=== PATIENT | female | born 1990 | race African-American/Black ===

== ENCOUNTER 2018-11-16 09:31 | Day surgery (SDC) | payer OTHER ==
[2018-11-16 10:05] VITALS: BMI 35.6
[2018-11-16 10:06] VITALS: BP 121/69; TEMP 98.2
[2018-11-16 10:47] LABS: Bilirubin Negative (Negative); Blood, Urine Negative (Negative); Glucose, Urine (Dipstick) Negative (Negative); Leukocyte Negative (Negative); Nitrite Negative (Negative); Protein, Urine (Dipstick) Negative (Neg-Trace); Urobilinogen 0.2 mg/dL (0.2-1.0)
[2018-11-16 10:50] LABS: Clarity Clear (Clear)
--- NOTE | 2018-11-16 23:55 | SS ---
DATE OF ADMISSION: 11/16/2018 DATE OF DISCHARGE: 11/16/2018 REGULAR PHYSICIAN: Angeles Noel MD. EVALUATING PHYSICIAN: Evsin Miller MD CHIEF COMPLAINT: Back pain. HISTORY OF PRESENT ILLNESS: Ms. Reyes is a 27-year-old black, G7, P5, with an estimated date of confinement of 12/25/2018, who presents complaining of low back pain since last evening and she thinks that she has lost her mucus plug. She denies ruptured membranes or vaginal bleeding. Her care has been with Dr. Noel. She is scheduled for repeat section on 12/17. PAST OBSTETRICAL HISTORY: All vaginal deliveries with the exception of a in 2017 at 41-1/2 weeks for what sounds like a placental abruption. She has also experienced DIU at 8-1/2 months. PAST MEDICAL HISTORY: None. PAST SURGICAL HISTORY: x1. CURRENT MEDICATIONS: vitamins and Diclegis p.r.n. ALLERGIES: NO KNOWN ALLERGIES. SOCIAL HISTORY: Denies tobacco, alcohol, or drug use. FAMILY HISTORY: Unremarkable. REVIEW OF SYSTEMS: She denies nausea, vomiting, fever, chills, ruptured membranes, or vaginal bleeding. She denies decreased movement. PHYSICAL EXAMINATION: VITAL SIGNS: Stable. She is afebrile in triage. GENERAL: She is pleasant and in no acute distress. ABDOMEN: Soft, nontender, and gravid. PELVIC: Shows the cervix to be extremely high, perhaps at fingertip dilated, thick and uneffaced. heart rate tracing is stable. Irritability seen. The patient is hydrated vigorously with oral fluids. Her urinalysis returns with a specific gravity of 1.015 with negative protein, negative glucose, negative ketones, negative blood, negative nitrites, negative bilirubin, and negative leukocyte esterase. Over her period of observation in labor and delivery, she has an occasional contraction, but they are not regular. ASSESSMENT: 1. 34-1/2 week intrauterine . 2. No evidence of labor at this time. PLAN: The patient will be dismissed to home. She was given complete precautions and was told to return should she experience these. Dr. Noel's office will be notified. Job ID: [id number]
== END 2018-11-16 12:03 | disposition home or self-care (01) ==
LOC: L&D/OP 09:31
PROVIDERS: ATTEND Obstetrics & Gynecology
DX: O99.89 Other specified diseases and conditions complicating pregnancy, childbirth and the puerperium (principal); M54.5 Low back pain; Z3A.34 34 weeks gestation of pregnancy
CPT/HCPCS: 81003; 99283

== ENCOUNTER 2018-12-10 16:39 | Inpatient (IN) | payer OTHER ==
[2018-12-10] MEDS ORDERED: Ondansetron PF 4 MG/2 ML Vial IVP PRN ×2 (16:46→20:22)
[2018-12-10] MEDS ORDERED: Acetaminophen 500 MG TAB PO PRN (16:46)
[2018-12-10] MEDS ORDERED: hydrALAZINE 20 MG/ML VIAL SLOW IVP PRN ×2 (16:46→20:30)
[2018-12-10] MEDS ORDERED: Promethazine HCl 25 MG/ML VIAL IM PRN ×2 (16:46→20:22)
[2018-12-10] MEDS ORDERED: Bicitra 30 ML UDCUP PO SCH (17:00)
[2018-12-10] MEDS ORDERED: CEFAZOLIN 2 GM, IV Admixture Fee-Chemo 1 UNITS in Sodium Chloride 0.9% 100 ML IVPB SCH (17:15)
[2018-12-10 18:03] VITALS: BMI 37.8
[2018-12-10] MEDS: Lactated Ringer's 1,000 ML IV SCH ×2 (18:04→18:51)
[2018-12-10 18:27] LABS: Hemoglobin 11.4 g/dL (12.0-16.0); Mean Corpuscular HGB CONC 34.5 g/dL (32.0-36.0); Mean Corpuscular Hemoglobin 34.7 pg (27.0-31.0); Mean Platelet Volume 8.4 fL (7.4-10.4); Platelet Count 171 thou/uL (130-400); RBC Distribution Width 13.2 % (11.5-14.5); Red Blood Cell (RBC) Count 3.29 mill/uL (4.20-5.40); White Blood Cell (WBC) Count 7.7 thou/uL (4.8-10.8)
[2018-12-10] MEDS ORDERED: MORPHINE 5 MG/10 ML PF VIAL ONE (18:42)
[2018-12-10] MEDS ORDERED: Phenylephrine HCL 10 MG/ML VIAL ONE (18:42)
[2018-12-10] MEDS ORDERED: Oxytocin 10 UNITS/ML VIAL ONE ×2 (18:42→19:53)
[2018-12-10] MEDS ORDERED: Ondansetron PF 4 MG/2 ML Vial ONE (18:42)
[2018-12-10 19:02] LABS: ALT (SGPT) 14 U/L (8-55); AST (SGOT) 23 U/L (5-34); Albumin 3.6 g/dL (3.5-5.0); Alkaline Phosphatase 132 U/L (40-150); Anion Gap 13 mmol/L (10-20); BUN (Urea Nitrogen) 9 mg/dL (7.0-18.7); Bilirubin, Total 0.4 mg/dL (0.2-1.2); Calc. Creatinine Clearance 190 mL/min (70-130); Calcium 9.7 mg/dL (7.8-10.44); Carbon Dioxide 21 mmol/L (22-29); Chloride 107 mmol/L (98-107); Estimated GFR-MDRD Greater than 90; Globulin 2.9 g/dL (2.4-3.5); Glucose 63 mg/dL (70-105); HBSAg Index 0.23 S/CO (0-0.99); Hep B Surf Ag Non-Reactive S/CO (NonReactive); Potassium 4.3 mmol/L (3.5-5.1); Protein, Total 6.5 g/dL (6.0-8.3); Sodium 137 mmol/L (136-145); Syphilis Antibody Nonreactive (Nonreactive); Syphilis Antibody Index 0.03 S/CO (<1.00 Non-Reactive)
[2018-12-10] MEDS ORDERED: Carboprost 250 MCG/ML AMP ONE ×2 (19:26→22:54)
[2018-12-10] MEDS ORDERED: L&D-Morphine 4 MG/ML VIAL SLOW IVP PRN (20:22)
[2018-12-10] MEDS ORDERED: Promethazine HCl 25 MG SUPP PR PRN (20:22)
[2018-12-10] MEDS ORDERED: HYDROmorphone 2 MG/ML VIAL SLOW IVP PRN (20:22)
[2018-12-10] MEDS ORDERED: Naloxone HCl 0.4 mg/ml Vial IVP PRN (20:22)
[2018-12-10] MEDS ORDERED: Naloxone HCl 0.4 mg/ml Vial IV PRN (20:22)
[2018-12-10] MEDS ORDERED: Meperidine HCl/PF 25 MG/ML VIAL SLOW IVP PRN (20:22)
[2018-12-10] MEDS ORDERED: Ondansetron HCl/PF 4 MG/2 ML Vial IVP PRN (20:22)
--- NOTE | 2018-12-10 20:29 | PDOC.OPDEL ---
OB Operative/Delivery Note Delivery Dr/Surgeon: Bert Assist: Roma Pre-Delivery Diagnosis: scheduled section (38 weeks. Unstable lie. Prior c/s. Mild gestational hypertension.) Procedure/Post Delivery Dx: repeat low transverse CS Weeks gestation: 38 Anesthesia: spinal - Findings A Sex: female Weight: 8 lb 10 oz - 1 min: 9 - 5 min: 9 - Additional Findings/Plan Placenta delivered: manual removal (thin meconium..)
[2018-12-10] MEDS ORDERED: Communication Order-Pharmacy FS SCH (20:30)
[2018-12-10] MEDS ORDERED: Ketorolac Tromethamine 30 MG/ML VIAL IVP SCH (20:30)
[2018-12-10] MEDS ORDERED: Lanolin Ointment 7 GM TUBE TOP PRN (20:30)
[2018-12-10] MEDS ORDERED: Acetaminophen 325 MG TAB PO PRN (20:30)
[2018-12-10] MEDS ORDERED: Misoprostol 200 MCG TAB PR PRN (20:30)
[2018-12-10] MEDS ORDERED: Bisacodyl 10 MG SUPP PR PRN (20:30)
[2018-12-10] MEDS ORDERED: Ketorolac Tromethamine 30 MG/ML VIAL ONE (21:04)
[2018-12-10] MEDS: Ketorolac Tromethamine 30 MG/ML VIAL IVP PRN (21:05)
[2018-12-10] MEDS ORDERED: Carboprost 250 MCG/ML AMP IM ONE (23:00)
[2018-12-10] MEDS ORDERED: Tranexamic Acid 1,000 MG/10 ML VIAL ONE (23:11)
[2018-12-10] MEDS ORDERED: Misoprostol 200 MCG TAB ONE ×2 (23:11→23:12)
[2018-12-10 23:28] LABS: Hemoglobin 10.9 g/dL (12.0-16.0); Mean Corpuscular HGB CONC 34.7 g/dL (32.0-36.0); Mean Corpuscular Hemoglobin 34.8 pg (27.0-31.0); Mean Platelet Volume 7.6 fL (7.4-10.4); Platelet Count 178 thou/uL (130-400); Red Blood Cell (RBC) Count 3.15 mill/uL (4.20-5.40); White Blood Cell (WBC) Count 9.2 thou/uL (4.8-10.8)
[2018-12-10] MEDS ORDERED: Diphenoxylate HCl/Atropine Tablet PO PRN (23:31)
--- NOTE | 2018-12-10 23:36 | PDOC.EVN ---
Event Note - Event Note Event Note: Called to room for evaluation of bleeding. Patient with passage of large amount of clot. Asymptomatic, VSS. Large amount of clot removed from vault and lower uterine segment. Total QBL to this point 2300ml TXA and 800mcg cytotec administered. Repeat H/H 10.9/31.5 Type and cross ordered. Continue to monitor.
[2018-12-10] MEDS ORDERED: Tranexamic Acid 1,000 MG in Sodium Chloride 0.9% 250 ML 250 ML IVPB SCH (23:45)
[2018-12-11] MEDS: diphenhydrAMINE 50 MG/ML VIAL IVP PRN ×3 (00:59→23:35)
[2018-12-11] MEDS: Docusate Calcium (SURFAK) 240 MG CAP PO SCH ×3 (01:17→21:45)
--- NOTE | 2018-12-11 02:30 | OP ---
DATE OF PROCEDURE: 12/10/2018 PREOPERATIVE DIAGNOSES: 1. A 27-year-old female, G7, P5, A1 at 38 weeks gestation. 2. Prior section. 3. Unstable lie. 4. Mild gestational hypertension. POSTOPERATIVE DIAGNOSES: 1. A 27-year-old female, G7, P5, A1 at 38 weeks gestation. 2. Prior section. 3. Unstable lie. 4. Mild gestational hypertension. PROCEDURE PERFORMED: Repeat low-transverse section without extension. INFORMATICIST SURGEON: Darlene Brandon MD ANESTHESIA: Spinal block. ESTIMATED BLOOD LOSS: 750 mL. COMPLICATIONS: None. COUNTS: Correct x2. ANTIBIOTICS: 2 g Ancef, on-call to OR. FINDINGS: 1. Vigorous female infant in the vertex presentation. Apgars were 9 and 9 with weight of 8 pounds 10 ounces. Thin meconium noted. 2. Normal-appearing fallopian tubes, uterus, and ovaries. 3. Clear urine present in Baires catheter postprocedure. DISPOSITION: Recovery room, stable. DESCRIPTION OF PROCEDURE: The patient previously received informed consent in regard to surgery. She was taken back to the operating room, where she received a spinal block without complications. She was placed in the supine position, prepped and draped in usual sterile fashion. A Pfannenstiel incision was made below the vertical skin incision from the previous emergent section. The patient preferred a Pfannenstiel incision this time. It was carried down the fascia. Fascia was nicked in the midline. Fascial incision was extended bilaterally using curved Dick scissors. The rectus muscle bellies were then dissected superiorly and inferiorly off the rectus muscle bellies. The rectus muscle bellies were divided in midline. Peritoneal cavity was entered. Santos O retractor was placed. A 2-cm hysterotomy incision was made above the vesicouterine peritoneal reflection. This was extended via finger fractionation. The amniotic bag was ruptured with mild meconium noted. The baby was delivered in vertex presentation. Mouth and nares were bulb suctioned on the abdomen. The cord was doubly clamped and cut and baby was handed to pediatric nurse in attendance. Usual cord blood was obtained. Placenta was manually removed and the uterus was externalized and curetted of any remaining placental fragments with a dry laparotomy sponge. It was replaced back in the abdomen. The hysterotomy incision was then closed in a double-layer closure with #1 Monocryl suture. Hemostasis was confirmed. The pelvis again was irrigated and suctioned. Hemostasis was confirmed. The rectus muscle bellies were noted then to be hemostatic prior to fascial closure. The fascia was then reapproximated in running continuous fashion with 0 PDS suture x2. Subcutaneous tissue was noted to be hemostatic prior to skin closure with a 4-0 Monocryl subcuticular stitch and Dermabond. The surgery was terminated. No anesthetic or surgical complications occurred. Job ID: [id number]
[2018-12-11] MEDS: Lactated Ringer's 1,000 ML IV SCH ×2 (04:50→14:19)
[2018-12-11] MEDS ORDERED: Misoprostol 100 MCG TAB FS SCH (05:00)
[2018-12-11] MEDS: Naloxone HCl 0.4 mg/ml Vial IVP PRN ×2 (06:47→14:04)
[2018-12-11 07:04] LABS: Hemoglobin 8.8 g/dL (12.0-16.0); Mean Corpuscular HGB CONC 33.5 g/dL (32.0-36.0); Mean Corpuscular Hemoglobin 34.8 pg (27.0-31.0); Mean Platelet Volume 7.4 fL (7.4-10.4); Platelet Count 153 thou/uL (130-400); RBC Distribution Width 13.2 % (11.5-14.5); Red Blood Cell (RBC) Count 2.54 mill/uL (4.20-5.40); White Blood Cell (WBC) Count 7.9 thou/uL (4.8-10.8)
[2018-12-11] MEDS ORDERED: Hydrocerin (Eucerin) Cream 120 gm Jar TOP PRN (08:14)
[2018-12-11] MEDS ORDERED: HYDROcodone/Acetaminophen 5/325 mg Tablet PO PRN (08:30)
[2018-12-11] MEDS ORDERED: Adacel (T-DAP) 0.5 ML SYRINGE IM ONE (09:00)
--- NOTE | 2018-12-11 10:12 | OP ---
DATE OF PROCEDURE: 12/10/2018 ADDENDUM: I was present and scrubbed to assist the uncomplicated repeat with Dr. Angeles Noel. Please see her note for full details. Job ID: [id number]
[2018-12-11] MEDS: Ketorolac Tromethamine 30 MG/ML VIAL IVP PRN (10:23)
[2018-12-11] MEDS: Prenatal Vitamin 1 TAB PO SCH (10:24)
[2018-12-11] MEDS: Ibuprofen 800 MG TAB PO SCH ×2 (14:04→21:45)
[2018-12-11] MEDS: HYDROcodone/Acetaminophen 5/325 mg Tablet PO PRN ×2 (17:06→21:45)
[2018-12-11] MEDS: Ferrous Sulfate 325 MG TAB PO SCH (21:44)
[2018-12-11] MEDS: Simethicone Chewable 80 MG TAB PO PRN (21:47)
[2018-12-12] MEDS: Lactated Ringer's 1,000 ML IV SCH ×3 (00:52→15:02)
[2018-12-12] MEDS: Ibuprofen 800 MG TAB PO SCH ×3 (05:54→21:40)
[2018-12-12] MEDS: HYDROcodone/Acetaminophen 5/325 mg Tablet PO PRN ×3 (05:55→21:45)
[2018-12-12] MEDS: Simethicone Chewable 80 MG TAB PO PRN ×3 (05:55→21:40)
--- NOTE | 2018-12-12 08:49 | PDOC.PP ---
Post Progress Note Post Day #: 2 PO intake tolerated: yes Flatus: yes Ambulation: yes Vital Signs (12 hours) Temp Pulse Resp BP Pulse Ox 12/12/18 04:10 98.6 F 74 16 108/64 96 12/11/18 23:30 98.8 F 93 18 111/58 L 99 Weight Weight 200 lb - Physical Examination Abdominal: + bowel sounds, lochia, no distention, appropriately TTP Result Diagrams: 12/11/18 06:33 12/10/18 18:06 Additional Labs: Post Labs Blood Type O POSITIVE 12/10/18 18:37 Hep Bs Antigen Non-Reactive S/CO (NonReactive) 12/10/18 18:06 - Assessment/Plan post op day 2 ..Doing well. Asymptomatic blood loss anemia.Had PPH post op from [facility]..Desires to go home in AM. f/u 2 and 6 weeks.
[2018-12-12] MEDS: Ferrous Sulfate 325 MG TAB PO SCH ×2 (09:40→21:39)
[2018-12-12] MEDS: Docusate Calcium (SURFAK) 240 MG CAP PO SCH ×2 (09:40→21:40)
[2018-12-12] MEDS: Prenatal Vitamin 1 TAB PO SCH (09:40)
[2018-12-13] MEDS: Lactated Ringer's 1,000 ML IV SCH ×3 (00:59→17:09)
--- NOTE | 2018-12-13 03:21 | PDOC.EVN ---
Event Note - Event Note Event Note: Dc held last PM. Ready for home now. VSS. AF. F/u with Dr. Noel as directed.
[2018-12-13] MEDS: Ibuprofen 800 MG TAB PO SCH ×2 (05:59→13:16)
[2018-12-13 08:29] VITALS: BP 121/79; TEMP 97.7
[2018-12-13] MEDS: Prenatal Vitamin 1 TAB PO SCH (09:42)
[2018-12-13] MEDS: Docusate Calcium (SURFAK) 240 MG CAP PO SCH (09:42)
[2018-12-13] MEDS: Ferrous Sulfate 325 MG TAB PO SCH (09:42)
[2018-12-13] MEDS: HYDROcodone/Acetaminophen 5/325 mg Tablet PO PRN ×2 (09:43→17:11)
== END 2018-12-13 18:15 | disposition home or self-care (01) | DRG 787 ==
LOC: L&D 16:39 → 3SW 12-11 11:22
PROVIDERS: ADMIT Obstetrics & Gynecology; ATTEND Obstetrics & Gynecology
PROC: 10D00Z1 Extraction of Products of Conception, Low, Open Approach (ICD-10-PCS; principal; 2018-12-10)
DX: O34.211 Maternal care for low transverse scar from previous cesarean delivery (principal); O72.1 Other immediate postpartum hemorrhage; O13.4 Gestational [pregnancy-induced] hypertension without significant proteinuria, complicating childbirth; O32.0XX0 Maternal care for unstable lie, not applicable or unspecified; Z3A.38 38 weeks gestation of pregnancy; Z37.0 Single live birth
CPT/HCPCS: 36415; 51702; 80053; 85027; 86780; 86850; 86900; 86901; 87340; J0690; J1200; J1885; J2274; J2310; J2370; J2405; J2590; J3490; J7050

== ENCOUNTER 2019-02-18 13:58 | Emergency (ER) | payer OTHER ==
--- NOTE | 2019-02-18 14:40 | ULT ---
RIGHT LOWER EXTREMITY VENOUS DUPLEX: INDICATIONS: Right lower extremity palpable abnormality. TECHNIQUE: Deep veins evaluated with color Doppler, spectral analysis, and compression. FINDINGS: Deep veins interrogated include common femoral vein, femoral vein, popliteal vein, and posterior tibi al vein. These veins show normal compression and blood flow. No evidence of DVT. Soft tissues of the region of concern within the right calf reveal a small area of fluid echogenicity , approximately 3 to 4 mm. IMPRESSION: 1. Negative right venous duplex exam. 2. Small area of fluid echogenicity, 3 to 4 mm in size, at site of clinical concern within the right calf. This could relate to a small developing inflammatory fluid collection, such as abscess. Recommend clinical correlation. Imaging followup may be obtained should clinical findings persist. Transcribed Date/Time: 02/18/2019 2:56 PM
[2019-02-18 17:14] LABS: Hemoglobin 13.2 g/dL (12.0-16.0); Mean Corpuscular Hemoglobin 32.8 pg (27.0-31.0); Mean Corpuscular Volume 96.3 fL (78.0-98.0); Mean Platelet Volume 6.6 fL (7.4-10.4); Platelet Count 274 thou/uL (130-400); RBC Distribution Width 11.9 % (11.5-14.5); Red Blood Cell (RBC) Count 4.03 mill/uL (4.20-5.40); White Blood Cell (WBC) Count 4.4 thou/uL (4.8-10.8)
[2019-02-18 17:35] LABS: ALT (SGPT) 19 U/L (8-55); AST (SGOT) 17 U/L (5-34); Albumin 4.5 g/dL (3.5-5.0); Alkaline Phosphatase 71 U/L (40-110); Anion Gap 10 mmol/L (10-20); BUN (Urea Nitrogen) 11 mg/dL (7.0-18.7); Bilirubin, Total 0.6 mg/dL (0.2-1.2); Calc. Creatinine Clearance 0 mL/min (70-130); Calcium 9.2 mg/dL (7.8-10.44); Carbon Dioxide 24 mmol/L (22-29); Chloride 108 mmol/L (98-107); Estimated GFR-MDRD 80; Glucose 87 mg/dL (70-105); Potassium 3.5 mmol/L (3.5-5.1); Protein, Total 7.5 g/dL (6.0-8.3); Sodium 138 mmol/L (136-145)
[2019-02-18 17:38] LABS: Lymphocytes 75 % (21-51); MDiff Complete? YES; Monocytes 2 % (0-10); Neutrophil 21 % (42-75); Platelet Morphology Comment Appears Adequate; Reactive Lymphocytes 2 % (0-10)
--- NOTE | 2019-02-18 17:58 | RAD ---
Radiograph right leg tibia-fibula 2 views: HISTORY: 28-year-old female with traumatic pain due to fall FINDINGS: No fracture, periostitis, or permeative lesion involving tibia or fibula. No soft tissue calcificatio ns or subcutaneous gas. IMPRESSION: Normal
[2019-02-18 18:24] LABS: INR-International Normal Ratio 1.1; Prothrombin Time 13.7 SEC (12.0-14.7)
[2019-02-18 18:25] LABS: PTT 35.7 SEC (22.9-36.1)
[2019-02-18 18:33] LABS: D-Dimer Test Less than 0.27 *mcg/mL (0.27-0.43)
[2019-02-18 18:35] LABS: BHCG - Serum Negative (NEGATIVE); Pregs Control Background? CLEAR/WHITE (CLR/WHITE); Pregs Control Bar Appear? YES (CONTROL BAR)
[2019-02-18 18:44] LABS: Bilirubin Negative (Negative); Blood, Urine 2+ (Negative); Clarity Clear (Clear); Glucose, Urine (Dipstick) Normal (Negative); Leukocyte Negative Leu/uL (Negative); Nitrite Negative (Negative); Protein, Urine (Dipstick) 10 mg/dL (Neg-Trace); RBC/HPF Greater than 50 HPF (0-3); Squamous Epithelial 0-3 HPF (0-3); Urobilinogen Normal mg/dL (Less than 2); WBC/HPF 21-50 HPF (0-3)
[2019-02-18 18:49] LABS: Pregnancy Test - Urine (BHCG) Negative (Negative); Pregu Control Background? CLEAR/WHITE (CLR/WHITE); Pregu Control Bar Appear? YES (CONTROL BAR); Specific Gravity 1.024 (1.002-1.036)
[2019-02-18 19:03] LABS: Bacteria/HPF 2+ HPF (None Seen)
== END 2019-02-18 19:54 | disposition home or self-care (01) ==
LOC: ERS 13:58
DX: M79.81 Nontraumatic hematoma of soft tissue (principal); N93.9 Abnormal uterine and vaginal bleeding, unspecified; I10 Essential (primary) hypertension
CPT/HCPCS: 36415; 80053; 81003; 81015; 81025; 84703; 85025; 85379; 85610; 85730